=== PATIENT | female | born 2000 | race African-American/Black ===

== ENCOUNTER 2020-05-31 14:38 | Emergency (ER) | payer OTHER ==
[2020-06-01 15:25] LABS: SARS-CoV-2 MS2 Positive; SARS-CoV-2 N Gene Negative; SARS-CoV-2 S Gene Negative; SARS-CoV-2 orf1ab Negative
== END 2020-05-31 15:04 | disposition home or self-care (01) ==
LOC: ERS 14:38
DX: Z20.828 Contact with and (suspected) exposure to other viral communicable diseases (principal)
CPT/HCPCS: 87635; 99283; U0003